=== PATIENT | female | born 1985 | race Caucasian/White ===

== ENCOUNTER 2018-08-09 13:47 | Emergency (ER) | payer MEDICARE ==
[~2018-08-09] VITALS: Ht 172.7 cm; Wt 70.5 kg
[2018-08-09 13:57] VITALS: Ht 172.7 cm; Wt 70.5 kg
[2018-08-09] MEDS ORDERED: VOLTAREN75 MG PO (17:39)
[2018-08-09] MEDS ORDERED: ROBAXIN500 MG PO (17:39)
[2018-08-09 18:10] VITALS: BP 132/81
== END 2018-08-09 18:08 | disposition home or self-care (01) ==
LOC: D.ER 13:47
DX: R07.81 Pleurodynia (principal); V19.9XXA Pedal cyclist (driver) (passenger) injured in unspecified traffic accident, initial encounter; Y93.89 Activity, other specified; Y92.410 Unspecified street and highway as the place of occurrence of the external cause; F17.200 Nicotine dependence, unspecified, uncomplicated

== ENCOUNTER 2019-02-14 13:38 | Emergency (ER) | payer MEDICARE ==
[~2019-02-14] VITALS: Ht 172.7 cm; Wt 81.6 kg
[~2019-02-14 13:38] MED LIST: ROBAXIN500 MG PO; VOLTAREN75 MG PO
[2019-02-14 13:41] VITALS: Ht 172.7 cm; Wt 81.6 kg
[2019-02-14] MEDS ORDERED: SEROQUEL100 MG PO (13:48)
[2019-02-14] MEDS ORDERED: POLY-VI-SOL W/I50 ML PO (13:49)
[2019-02-14] MEDS ORDERED: KLONOPIN1 MG PO (13:49)
[2019-02-14 14:23] LABS: HCG SERUM POSITIVE (NEGATIVE)
[2019-02-14 14:27] LABS: BASOPHILS 0.2 % (0-2); EOSINOPHILS 2.5 % (0-7); HEMATOCRIT 34.3 % (36.0-48.0); HEMOGLOBIN 11.7 g/dL (12-16); IMMATURE GRANULOCYTES 0.5 % (0-5); LYMPHOCYTES 21.9 % (15-50); MCH 31.1 pg (26.0-34.0); MCHC 34.1 g/dL (31.0-37.0); MCV 91.2 fL (80.0-100.0); MEAN PLATELET VOLUME 11.2 fL (7.4-10.4); NEUTROPHILS 64.9 % (40-80); PLATELET COUNT 226 10x3/uL (130-400); RBC 3.76 10x6/uL (4.00-5.40); RDW 13.4 % (11.5-14.5); WBC 8.8 10x3/uL (4.8-10.8)
[2019-02-14 14:38] LABS: ALKALINE PHOSPHATASE 33 U/L (46-116); ALT (SGPT) 38 U/L (10-68); BILIRUBIN - TOTAL 0.18 mg/dL (0.2-1.3); CALC OSMOLALITY 276 mosm/kg (275-300); CALCIUM 8.6 mg/dL (8.5-10.1); CARBON DIOXIDE 23.6 mmol/L (21.0-32.0); CHLORIDE - SERUM 106 mmol/L (98-107); CREATININE - SERUM 0.5 mg/dL (0.6-1.3); GLUCOSE 100 mg/dL (74-106); POTASSIUM - SERUM 3.6 mmol/L (3.5-5.1); PROTEIN - SERUM 6.3 g/dL (6.4-8.2); SODIUM 138 mmol/L (136-145); UREA NITROGEN 14 mg/dL (7-18); eGFR NON AFRICAN AMERICAN > 90 mL/min (90-120)
[2019-02-14 15:10] LABS: APPEARANCE CLEAR (CLEAR); BILIRUBIN NEGATIVE (NEGATIVE); COLOR YELLOW (YELLOW); GLUCOSE NEGATIVE (NEGATIVE); KETONE NEGATIVE (NEGATIVE); NITRITE POSITIVE (NEGATIVE); PROTEIN NEGATIVE (NEGATIVE); SPECIFIC GRAVITY 1.015 (1.005-1.020); UROBILINOGEN NORMAL (NORMAL)
[2019-02-14 15:13] LABS: BACTERIA MANY /hpf (NONE SEEN); RED CELLS - URINE 0-5 /hpf (0-5)
[2019-02-14] MEDS ORDERED: MACROBID100 MG PO (16:25)
[2019-02-14 16:45] VITALS: BP 114/69
== END 2019-02-14 16:30 | disposition home or self-care (01) ==
LOC: D.ER 13:38
PROVIDERS: Emergency Medicine
DX: O23.40 Unspecified infection of urinary tract in pregnancy, unspecified trimester (principal); Z76.0 Encounter for issue of repeat prescription; Z3A.00 Weeks of gestation of pregnancy not specified

== ENCOUNTER 2019-03-28 12:10 | Emergency (ER) | payer MEDICARE ==
[~2019-03-28] VITALS: Ht 172.7 cm; Wt 82.3 kg
[~2019-03-28 12:10] MED LIST changes: +KLONOPIN1 MG PO; +MACROBID100 MG PO; +POLY-VI-SOL W/I50 ML PO; +SEROQUEL100 MG PO
[2019-03-28 12:14] VITALS: BP 137/78; Ht 172.7 cm; Wt 82.3 kg
[2019-03-28] MEDS ORDERED: FOLIC ACID1 MG PO (12:18)
[2019-03-28] MEDS ORDERED: PHENERGAN25 M1 PO (12:19)
== END 2019-03-28 14:45 | disposition left against medical advice (07) ==
LOC: D.ER 12:10
DX: O26.892 Other specified pregnancy related conditions, second trimester (principal); Z3A.15 15 weeks gestation of pregnancy; R51 Headache

== ENCOUNTER 2019-06-17 00:12 | Outpatient (CLI) | payer MEDICARE ==
[~2019-06-17] VITALS: Ht 172.7 cm; Wt 93.2 kg
[~2019-06-17 00:12] MED LIST changes: +FOLIC ACID1 MG PO; +PHENERGAN25 M1 PO
[2019-06-17 00:15] VITALS: Ht 172.7 cm; Wt 93.2 kg
[2019-06-17 00:31] LABS: BASOPHILS 0.2 % (0-2); HEMATOCRIT 37.8 % (36.0-48.0); HEMOGLOBIN 13.3 g/dL (12-16); IMMATURE GRANULOCYTES 1.6 % (0-5); LYMPHOCYTES 16.2 % (15-50); MCH 32.1 pg (26.0-34.0); MCHC 35.2 g/dL (31.0-37.0); MCV 91.3 fL (80.0-100.0); MONOCYTES 12.4 % (2-11); NEUTROPHILS 67.6 % (40-80); PLATELET COUNT 250 10x3/uL (130-400); RBC 4.14 10x6/uL (4.00-5.40); WBC 12.7 10x3/uL (4.8-10.8)
[2019-06-17 00:40] LABS: HCG SERUM POSITIVE (NEGATIVE)
[2019-06-17 00:42] LABS: ALBUMIN 2.7 g/dL (3.4-5.0); ALKALINE PHOSPHATASE 74 U/L (46-116); ALT (SGPT) 22 U/L (10-68); BILIRUBIN - TOTAL 0.19 mg/dL (0.2-1.3); CALC OSMOLALITY 273 mosm/kg (275-300); CALCIUM 8.7 mg/dL (8.5-10.1); CARBON DIOXIDE 23.1 mmol/L (21.0-32.0); CHLORIDE - SERUM 106 mmol/L (98-107); CREATININE - SERUM 0.5 mg/dL (0.6-1.3); GLUCOSE 107 mg/dL (74-106); POTASSIUM - SERUM 4.1 mmol/L (3.5-5.1); PROTEIN - SERUM 6.6 g/dL (6.4-8.2); SODIUM 138 mmol/L (136-145); UREA NITROGEN 8 mg/dL (7-18); eGFR NON AFRICAN AMERICAN > 90 mL/min (90-120)
[2019-06-17 00:45] LABS: AMYLASE - SERUM 43 U/L (25-115); LIPASE 117 U/L (73-393); TROPONIN-I < 0.017 ng/mL (0.000-0.060)
--- NOTE | 2019-06-17 00:49 | NUR ---
PT PROVIDED WATER TO DRINK.
--- NOTE | 2019-06-17 01:27 | NUR ---
URINE SPECIMEN TAKEN TO LAB. PT PROVIDED BLANKET FOR COMFORT.
[2019-06-17 01:42] LABS: APPEARANCE HAZY (CLEAR); COLOR YELLOW (YELLOW); NITRITE NEGATIVE (NEGATIVE); SPECIFIC GRAVITY 1.015 (1.005-1.020)
[2019-06-17 01:43] LABS: BACTERIA FEW /hpf (NONE SEEN); BILIRUBIN NEGATIVE (NEGATIVE); EPITHELIAL CELLS 0-5 /hpf (0-5); GLUCOSE NEGATIVE (NEGATIVE); KETONE NEGATIVE (NEGATIVE); PROTEIN NEGATIVE (NEGATIVE); RED CELLS - URINE 0-5 /hpf (0-5); UROBILINOGEN NORMAL (NORMAL)
[2019-06-17 01:45] VITALS: BP 140/87
[2019-06-17 02:49] LABS: UDS - AMPHET NEGATIVE QUAL (NEGATIVE); UDS - BARB NEGATIVE QUAL (NEGATIVE); UDS - BENZO NEGATIVE QUAL (NEGATIVE); UDS - COCAINE NEGATIVE QUAL (NEGATIVE); UDS - OPIATE NEGATIVE QUAL (NEGATIVE); UDS - PCP NEGATIVE QUAL (NEGATIVE); UDS - THC NEGATIVE QUAL (NEGATIVE)
== END 2019-06-17 03:36 | disposition home or self-care (01) ==
LOC: OBSVTIME → D.ER 00:12 → D.OPS 00:12 → OBSVTIME 01:34 → D.ER 01:34 → D.LD 01:34 → D.OPS 03:36 → D.LD 03:36 → EDSTATUS 14:26
PROVIDERS: Family Medicine; ATTEND Obstetrics & Gynecology
DX: O26.892 Other specified pregnancy related conditions, second trimester (principal); K92.0 Hematemesis; O24.112 Pre-existing type 2 diabetes mellitus, in pregnancy, second trimester; E11.9 Type 2 diabetes mellitus without complications; O30.002 Twin pregnancy, unspecified number of placenta and unspecified number of amniotic sacs, second trimester; O99.332 Smoking (tobacco) complicating pregnancy, second trimester; F17.210 Nicotine dependence, cigarettes, uncomplicated; O99.342 Other mental disorders complicating pregnancy, second trimester; F31.9 Bipolar disorder, unspecified; Z3A.27 27 weeks gestation of pregnancy

== ENCOUNTER → 2019-07-31 20:12 | Outpatient (CLI) | payer MEDICARE ==
[2019-06-17 00:15] VITALS: BMI 31.2
== END | disposition home or self-care (01) ==
LOC: D.LDO 20:12
PROVIDERS: ATTEND Obstetrics & Gynecology
DX: O47.03 False labor before 37 completed weeks of gestation, third trimester (principal); Z3A.33 33 weeks gestation of pregnancy

== ENCOUNTER 2019-08-21 10:01 | Outpatient (CLI) | payer MEDICARE ==
[2019-06-17 00:15] VITALS: BMI 31.2
== END 2019-08-21 15:00 | disposition left against medical advice (07) ==
LOC: D.LDO 10:01
PROVIDERS: ATTEND Obstetrics & Gynecology
DX: O47.03 False labor before 37 completed weeks of gestation, third trimester (principal); O30.003 Twin pregnancy, unspecified number of placenta and unspecified number of amniotic sacs, third trimester; Z3A.36 36 weeks gestation of pregnancy

== ENCOUNTER 2019-08-27 21:53 | Emergency (ER) | payer MEDICARE ==
[~2019-08-27] VITALS: Ht 172.7 cm; Wt 95.5 kg
[2019-08-27 21:56] VITALS: Ht 172.7 cm; Wt 95.5 kg
[2019-08-27 22:16] LABS: BASOPHILS 0.3 % (0-2); EOSINOPHILS 1.5 % (0-7); HEMATOCRIT 32.1 % (36.0-48.0); HEMOGLOBIN 10.9 g/dL (12-16); IMMATURE GRANULOCYTES 1.9 % (0-5); LYMPHOCYTES 17.5 % (15-50); MCH 32.3 pg (26.0-34.0); MCV 95.3 fL (80.0-100.0); MEAN PLATELET VOLUME 10.2 fL (7.4-10.4); MONOCYTES 9.9 % (2-11); NEUTROPHILS 68.9 % (40-80); RBC 3.37 10x6/uL (4.00-5.40); RDW 13.3 % (11.5-14.5)
[2019-08-27 22:27] LABS: PLATELET COUNT 346 10x3/uL (130-400)
[2019-08-27 22:28] LABS: CALC OSMOLALITY 290 mosm/kg (275-300); CALCIUM 8.4 mg/dL (8.5-10.1); CHLORIDE - SERUM 107 mmol/L (98-107); CREATININE - SERUM 0.8 mg/dL (0.6-1.3); GLUCOSE 125 mg/dL (74-106); HCG SERUM POSITIVE (NEGATIVE); POTASSIUM - SERUM 3.8 mmol/L (3.5-5.1); SODIUM 144 mmol/L (136-145); UREA NITROGEN 21 mg/dL (7-18); eGFR NON AFRICAN AMERICAN 86 mL/min (90-120)
[2019-08-27 22:34] LABS: ALBUMIN 2.6 g/dL (3.4-5.0); ALKALINE PHOSPHATASE 109 U/L (46-116); ALT (SGPT) 62 U/L (10-68); BILIRUBIN - TOTAL 0.91 mg/dL (0.2-1.3); PROTEIN - SERUM 6.8 g/dL (6.4-8.2)
--- NOTE | 2019-08-27 23:24 | NUR ---
DR FLORES NOTIFIED OF PATIENT'S BEHAVIOR AND ASSESSMENT RESULTS. PT IS A LOW RISK PER DR FLORES. DR FLORES SAID TO GIVE RESOURCES TO PATIENT. RESOURCES GIVEN AND REVIEWED WITH PATIENT. PATIENT VERBALIZES UNDERSTANDING.
[2019-08-27 23:49] LABS: APPEARANCE CLEAR (CLEAR); BILIRUBIN NEGATIVE (NEGATIVE); COLOR YELLOW (YELLOW); GLUCOSE NEGATIVE (NEGATIVE); KETONE NEGATIVE (NEGATIVE); NITRITE NEGATIVE (NEGATIVE); PROTEIN NEGATIVE (NEGATIVE); UROBILINOGEN NORMAL (NORMAL)
[2019-08-27 23:50] LABS: BACTERIA FEW /hpf (NEGATIVE); EPITHELIAL CELLS 0-5 /hpf (0-5); RED CELLS - URINE 0-5 /hpf (0-5); UDS - AMPHET NEGATIVE QUAL (NEGATIVE); UDS - BARB NEGATIVE QUAL (NEGATIVE); UDS - BENZO NEGATIVE QUAL (NEGATIVE); UDS - COCAINE NEGATIVE QUAL (NEGATIVE); UDS - OPIATE NEGATIVE QUAL (NEGATIVE); UDS - PCP NEGATIVE QUAL (NEGATIVE); UDS - THC NEGATIVE QUAL (NEGATIVE); WHITE CELLS - URINE 0-5 /hpf (NEGATIVE)
[2019-08-28 02:02] VITALS: BP 134/80
== END 2019-08-28 02:03 | disposition other institution (70) ==
LOC: D.ER 21:53
PROVIDERS: Emergency Medicine
DX: O72.1 Other immediate postpartum hemorrhage (principal); E11.9 Type 2 diabetes mellitus without complications; O86.12 Endometritis following delivery; Z86.19 Personal history of other infectious and parasitic diseases; O10.03 Pre-existing essential hypertension complicating the puerperium

== ENCOUNTER 2019-09-01 14:49 | Emergency (ER) | payer MEDICARE ==
[~2019-09-01] VITALS: Ht 172.7 cm; Wt 102.3 kg
[2019-09-01 15:00] VITALS: Ht 172.7 cm; Wt 102.3 kg
[2019-09-01 16:18] LABS: BASOPHILS 0.3 % (0-2); EOSINOPHILS 1.8 % (0-7); HEMATOCRIT 27.5 % (36.0-48.0); HEMOGLOBIN 8.9 g/dL (12-16); IMMATURE GRANULOCYTES 1.9 % (0-5); LYMPHOCYTES 18.4 % (15-50); MCH 31.2 pg (26.0-34.0); MCHC 32.4 g/dL (31.0-37.0); MCV 96.5 fL (80.0-100.0); MEAN PLATELET VOLUME 9.7 fL (7.4-10.4); MONOCYTES 7.3 % (2-11); NEUTROPHILS 70.3 % (40-80); PLATELET COUNT 432 10x3/uL (130-400); RBC 2.85 10x6/uL (4.00-5.40); RDW 13.2 % (11.5-14.5); WBC 9.8 10x3/uL (4.8-10.8)
[2019-09-01 16:19] LABS: APPEARANCE CLOUDY (CLEAR); BILIRUBIN NEGATIVE (NEGATIVE); COLOR YELLOW (YELLOW); GLUCOSE NEGATIVE (NEGATIVE); KETONE NEGATIVE (NEGATIVE); NITRITE NEGATIVE (NEGATIVE); PROTEIN 1+ mg/dL (NEGATIVE); UROBILINOGEN NORMAL (NORMAL)
[2019-09-01 16:23] LABS: RED CELLS - URINE 25-50 /hpf (0-5); WHITE CELLS - URINE 0-5 /hpf (NEGATIVE)
[2019-09-01 16:24] LABS: BACTERIA FEW /hpf (NEGATIVE); EPITHELIAL CELLS 0-5 /hpf (0-5)
[2019-09-01 16:28] LABS: CALC OSMOLALITY 282 mosm/kg (275-300); CALCIUM 8.7 mg/dL (8.5-10.1); CARBON DIOXIDE 25.5 mmol/L (21.0-32.0); CHLORIDE - SERUM 108 mmol/L (98-107); CREATININE - SERUM 0.6 mg/dL (0.6-1.3); GLUCOSE 105 mg/dL (74-106); POTASSIUM - SERUM 3.9 mmol/L (3.5-5.1); SODIUM 142 mmol/L (136-145); UREA NITROGEN 13 mg/dL (7-18); eGFR NON AFRICAN AMERICAN > 90 mL/min (90-120)
[2019-09-01 16:34] LABS: ALBUMIN 2.5 g/dL (3.4-5.0); ALKALINE PHOSPHATASE 89 U/L (46-116); ALT (SGPT) 42 U/L (10-68); BILIRUBIN - TOTAL 0.13 mg/dL (0.2-1.3); PROTEIN - SERUM 6.4 g/dL (6.4-8.2)
[2019-09-01 18:08] LABS: UDS - AMPHET NEGATIVE QUAL (NEGATIVE); UDS - BARB NEGATIVE QUAL (NEGATIVE); UDS - BENZO NEGATIVE QUAL (NEGATIVE); UDS - COCAINE NEGATIVE QUAL (NEGATIVE); UDS - OPIATE POSITIVE QUAL (NEGATIVE); UDS - PCP NEGATIVE QUAL (NEGATIVE); UDS - THC NEGATIVE QUAL (NEGATIVE)
[2019-09-01 18:50] VITALS: BP 140/83
== END 2019-09-01 18:51 | disposition home or self-care (01) ==
LOC: D.ER 14:49
PROVIDERS: Family Medicine
DX: O90.9 Complication of the puerperium, unspecified (principal); N99.842 Postprocedural seroma of a genitourinary system organ or structure following a genitourinary system procedure; L53.9 Erythematous condition, unspecified; E11.9 Type 2 diabetes mellitus without complications; I10 Essential (primary) hypertension; R10.9 Unspecified abdominal pain

== ENCOUNTER 2020-03-27 07:04 | Day surgery (SDC) | payer MEDICARE ==
[~2020-03-27] VITALS: Ht 170.2 cm; Wt 91.2 kg
[~2020-03-27 07:04] MED LIST changes: +FEXOFENADINE H180 MG PO; +GABAPENTIN100 MG
[2020-03-27 07:44] LABS: INR 0.9 (0.85-1.17); PROTIME 12.2 SECONDS (11.6-15.0)
[2020-03-27 07:55] LABS: HEMATOCRIT 44.7 % (36.0-48.0); HEMOGLOBIN 14.9 g/dL (12-16); LYMPHOCYTES 28.4 % (15-50); MCH 29.6 pg (26.0-34.0); MCHC 33.3 g/dL (31.0-37.0); MCV 88.9 fL (80.0-100.0); MEAN PLATELET VOLUME 11.1 fL (7.4-10.4); NEUTROPHILS 60.3 % (40-80); RBC 5.03 10x6/uL (4.00-5.40); RDW 14.4 % (11.5-14.5); WBC 6.3 10x3/uL (4.8-10.8)
[2020-03-27 08:00] LABS: PLATELET COUNT 265 10x3/uL (130-400)
[2020-03-27 08:19] LABS: ALBUMIN 3.6 g/dL (3.4-5.0); ALKALINE PHOSPHATASE 57 U/L (30-120); ALT (SGPT) 39 U/L (10-68); BILIRUBIN - TOTAL 0.37 mg/dL (0.2-1.3); CALC OSMOLALITY 271 mosm/kg (275-300); CALCIUM 8.4 mg/dL (8.5-10.1); CARBON DIOXIDE 23.9 mmol/L (21.0-32.0); CHLORIDE - SERUM 104 mmol/L (98-107); CREATININE - SERUM 0.8 mg/dL (0.6-1.3); GLUCOSE 107 mg/dL (74-106); PROTEIN - SERUM 7.8 g/dL (6.4-8.2); SODIUM 136 mmol/L (136-145); UREA NITROGEN 13 mg/dL (7-18); eGFR NON AFRICAN AMERICAN 86 mL/min (90-120)
[2020-03-27 08:27] VITALS: BP 131/75; Ht 170.2 cm; Wt 91.2 kg
[2020-03-27] MEDS ORDERED: HYDROCODON-ACE1 EA10 PO (09:50)
--- NOTE | 2020-03-27 10:12 | NUR ---
1005 IV RIGHT ANTECUBITAL INFILTRATED, RAISED AND RED, PATIENT C/O PAIN AT INSERTIION SITE. DISCONTINUED. DISCUSSED WITH DR JOHNS AND A DINESH LINK CUTTER, DR JOHNS SAID PATIENT DIDN'T NEED ANOTHER IV
--- NOTE | 2020-03-29 11:34 | OP ---
PATIENT NAME: COLLINS KOCH MEDICAL RECORD: [id number] :81 LOCATION:D.OPS ADMISSION DATE: SURGEON: NAGA JOHNS MD DATE OF OPERATION: 03/27/2020 PREOPERATIVE DIAGNOSIS: Carpal tunnel syndrome of the left wrist. POSTOPERATIVE DIAGNOSIS: Carpal tunnel syndrome of the left wrist. PROCEDURE: Left carpal tunnel release. SURGEON: Naga Johns MD CHIEF DEPUTY COURT CLERK: JAX Rodriguez ANESTHESIA: General. INTRAOPERATIVE COMPLICATIONS: None. SUMMARY OF PATHOLOGIC FINDINGS: The patient did have a very tight transverse carpal ligament consistent with preoperative EMGs, NCVs as well as the patient's symptoms. OPERATIVE SUMMARY IN DETAIL: After obtaining the appropriate preoperative orthopedic surgery consent as well as anesthetic consultation, evaluation and clearance, the patient was brought to the operating room and placed on the operating table in a supine position. After adequate general laryngeal mask airway was administered, tourniquet was placed on the proximal aspect of the left upper extremity. Left upper extremity was then prepped and draped in routine sterile fashion. The arm was elevated and exsanguinated, tourniquet was inflated to 250 mmHg. Appropriate timeout was taken and agreed upon by all given the patient's unique identifiers. Incision was made in line with the fourth metacarpal ray. This was then taken down to the distal aspect of the transverse carpal ligament, which was identified and incised gently. Median nerve was then identified. It was protected with a freer, and then under direct visualization with a combination of both the scalpel and the [place] light knife, the entire transverse carpal ligament was released. Having completed this, wound was copiously irrigated and closed by JAX Rodriguez with 4-0 Prolene. The area was infiltrated with 0.25% Marcaine plain. Sterile dressings were applied. The patient was awakened and taken to the recovery room in stable condition. All final needle and sponge counts were correct. 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
== END 2020-03-27 11:20 | disposition home or self-care (01) ==
LOC: D.OPS 07:04 → D.PAN 12:30
PROVIDERS: Anesthesiology; ATTEND Orthopaedic Surgery
DX: G56.02 Carpal tunnel syndrome, left upper limb (principal); E11.9 Type 2 diabetes mellitus without complications; J45.909 Unspecified asthma, uncomplicated; Z72.0 Tobacco use